=== PATIENT | female | born 1955 ===

== ENCOUNTER 2020-04-17 01:18 | Outpatient (CLI) | payer MEDICARE, MEDICAID, SELFPAY ==
--- NOTE | 2020-04-17 | DI.NM_ITS ---
APPROVED REPORT Exam: Pharmacologic Patient Location: Out-Patient Room/Bed: Stress Nurse: Jessica Hoyt RN BMI: 40.99 Baseline Rhythm: Sinus Rhythm Indications: chest pain. Medical History Medical History: HTN, Hyperlipidemia, Obesity , Smoking, SOB, COPD Cardiac Medications: Amlodipine. Aspirin. Atorvastatin. Lisinopril. Metoprolol. , Allergies: Morphine. Sulfa Cardiac Risk Factors: HTN, Hyperlipidemia, FHX of CAD, Smoking, SOB, COPD Exercise History: Indeterminate Physical Disabilities: Legs, Back, Hips Lung Sounds: Clear to auscultation Heart Sounds: Regular Stress Test Details Test: Pharmacologic stress testing performed using 0.4 mg of regadenoson per 5 mL given IV over 10 s econds. Nuclear Acquisition: Rest Tc-99m/Stress Tc-99m 1 day Rest Isotope: Tc-99m Sestamibi. Dose: 12.0 Date: 04/17/2020 Injection Time: 1035 Stress Isotope: Tc-99m Sestamibi. Dose: 37.0 Date: 04/17/2020 Injection Time: 1205 HR Resting HR Supine: 78 bpm Max Heart Rate (APMHR): 155 bpm Target HR (85% APMHR): 131 bpm Max HR Achieved: 120 bpm % of APMHR: 77 Recovery HR: 98 bpm BP Resting BP Supine: 156/100 mmHg ECG Resting ECG: Sinus Rhythm Ectopy: PVCs Stress ECG: Sinus Rhythm Arrhythmia: VPC's Recovery ECG: Sinus Rhythm Recovery Arrhythmia: VPC Stress ECG Conclusion 1. There is a pharmacological stress test. 2. The ECG portion of the exam is inconclusive. Stress Test Summary STAGE HR BP Symptoms NOTES Supine 78 156/100 1 min post Lexiscan injection 120 174/96 3 min post Lexiscan injection 103 174/90 6 min post Lexiscan injection 98 166/98 MPI Conclusion Ejection fraction was 63% with stress. There were no wall motion abnormalities. There is no evidence of ischemia on the imaging portion of this exam. This represents a normal SPECT stress test. Radiologist Interpretation Radiologist Interpretation by: Marbin Toure MD Interpretation Date/Time: 04/18/2020 12:02:29
[2020-04-17] MEDS: Regadenoson 0.4 MG/5 ML SYR IVP (12:17)
== END 2020-04-17 01:38 ==
PROVIDERS: PCP Internal Medicine; Visit Provider Internal Medicine Interventional Cardiology
DX: R07.89 Other chest pain (principal); I10 Essential (primary) hypertension; R06.02 Shortness of breath; E78.5 Hyperlipidemia, unspecified; J44.9 Chronic obstructive pulmonary disease, unspecified; Z82.49 Family history of ischemic heart disease and other diseases of the circulatory system
CPT/HCPCS: 78452; 93016; 93018; 93017; J2785